=== PATIENT | male | born 1965 | race Caucasian/White ===

== ENCOUNTER 2022-05-18 07:43 | Emergency (ER) | payer OTHER, SELFPAY ==
[2022-05-18 08:00] VITALS: BP 149/92; PULSE 80; RESP 18; TEMP 36.5; O2SAT 98
--- NOTE | 2022-05-18 08:26 | ED.GENADULT ---
HPI - General Adult General Chief complaint: Extremity Injury, Lower Stated complaint: ANKLE PAIN History of Present Illness HPI narrative: The patient is a 56-year-old male who woke up 2 days ago and spontaneously developed pain and swelling with redness at the right ankle. 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 He has not had any falls or twists or turns or trauma to the right ankle. This was spontaneous. The pain swelling redness and discomfort has continued for the last 2 days and has increased. No spontaneous redness of any other joints in the past. No history of gout. No falls or trauma. No other joints that are painful. No fevers or chills or diaphoresis. No cough or respiratory symptoms such as dyspnea or chest pain or abdominal pain or discomfort Related Data Home Medications Medication Instructions Recorded Confirmed atenolol 50 mg tablet 50 mg DAILY 05/18/22 05/18/22 atorvastatin 20 mg tablet 20 mg DAILY 05/18/22 05/18/22 cyclobenzaprine 10 mg tablet 10 mg DAILY 05/18/22 05/18/22 lisinopril 20 mg tablet 20 mg DAILY 05/18/22 05/18/22 omeprazole 20 mg capsule,delayed 40 mg DAILY 05/18/22 05/18/22 release tramadol 50 mg tablet 50 mg TID 05/18/22 05/18/22 Allergies Allergy/AdvReac Type Severity Reaction Status Date / Time No Known Allergies Allergy Mild Verified 05/18/22 08:04 Review of Systems Review of Systems: All systems reviewed & are unremarkable except as noted in HPI and below Constitutional: Constitutional: Reports no additional constitutional complaints, Denies anorexia, Denies body ache(s), Denies chills, Denies excessive sweating, Denies fatigue, Denies fever(s), Denies frequent falls, Denies headache(s), Denies malaise and Denies poor appetite Eyes: Eyes: Reports no additional eye complaints, Denies blurry vision, Denies change in vision, Denies irritation, Denies itchy eyes and Denies photophobia ENT: Reports system reviewed and no additional complaints, except as documented, Reports Normal hearing present, Denies change in voice, Denies dysphagia, Denies vertigo, Denies dizziness, Denies ear discharge, Denies headache(s), Denies hearing loss, Denies hoarseness, Denies nasal congestion, Denies neck pain, Denies sinus pressure, Denies sore throat and Denies throat swelling Cardiovascular: Cardiovascular: Reports no additional cardiovascular complaints, Denies chest pain, Denies syncope, Denies rapid heart rate, Denies irregular heart rhythm, Denies leg edema, Denies dyspnea and Denies slow heart rate Respiratory: Respiratory: Reports no additional respiratory complaints, Denies cough, Denies dyspnea, Denies stridor and Denies wheezing Gastrointestinal: Gastrointestinal: Reports no additional gastrointestinal complaints, Denies abdominal pain, Denies melena, Denies hematochezia, Denies dysphagia, Denies diarrhea, Denies nausea and Denies vomiting Genitourinary: Genitourinary: Denies hematuria, Denies oliguria, Denies dysuria, Denies flank pain, Denies urinary frequency and Denies urinary urgency Musculoskeletal: Musculoskeletal: Reports no additional musculoskeletal complaints, Reports abnormal gait, Denies back pain, Denies myalgias, Reports arthralgias (right ankle), Reports joint swelling ( right ankle), Denies muscle cramps, Denies muscle weakness, Denies neck pain and Denies numbness Integumentary/Breasts: Skin/Breast: Reports system reviewed and no additional complaints, except as docu, Denies breast pain, Denies change in pigmentation, Denies pruritus, Denies erythema and Denies wounds Neurologic: Reports system reviewed and no additional complaints, except as documented, Reports Normal hearing present, Denies Abnormal speech present, Denies abnormal gait, Denies confusion, Denies vertigo, Denies dizziness, Denies syncope, Denies frequent falls, Denies headache(s), Denies focal weakness, Denies numbness and Denies paresthesias Psychiatric: Psychiatric: Reports no additional psychiatric compl
[2022-05-18] MEDS: IBUPROFEN 400 MG TABLET 800 MG PO (08:30)
[2022-05-18] MEDS: ACETAMINOPHEN 325 MG TABLET 975 MG PO (08:30)
[2022-05-18] MEDS: CEPHALEXIN 500 MG CAPSULE PO (08:31)
[2022-05-18 08:49] VITALS: BP 131/89; PULSE 75; RESP 16; TEMP 36.3; O2SAT 98
== END 2022-05-18 08:49 | disposition home or self-care (01) ==
PROVIDERS: Emergency Provider Emergency Medicine; PCP Physician Assistant
DX: L03.115 Cellulitis of right lower limb (principal)
CPT/HCPCS: 99283; A9270

== ENCOUNTER 2022-11-02 07:24 | Emergency (ER) | payer OTHER, SELFPAY ==
--- NOTE | ~2022-11-02 | XR_ITS ---
Right ankle Technique: AP, oblique, and lateral views were obtained. Clinical History: Pain and swelling Findings: No acute fracture or dislocation is seen. Osseous alignment is anatomic. Ankle mortise and other visualized joint spaces are preserved. Soft tissues are otherwise unremarkable. Impression: Unremarkable right ankle. Reviewed, dictated and finalized at [facility]. [employer] Impression: Unremarkable right ankle.
[2022-11-02 07:24] VITALS: BP 141/101; PULSE 118; RESP 18; TEMP 36; O2SAT 97
--- NOTE | 2022-11-02 07:32 | ED.LOWEXIN ---
HPI - Extremity Injury (Lower) General Chief Complaint: Extremity Problem,Nontraumatic Stated Complaint: foot pain Time Seen by Provider: 11/02/22 07:26 Source: patient and RN notes reviewed Mode of arrival: wheelchair Limitations: no limitations History of Present Illness HPI Narrative: Patient states that he has been having some pain in his left foot and ankle and noticed that it was slightly red. He had some leftover antibiotics that he started 3 days ago. With his left foot being tender he was walking down the stairs and then twisted his ankle on the right side while trying to limp on his left leg. He says his left ankle and foot have significantly improved. complaint: ankle injury Onset (ago): day(s) (2) Injury: Left: ankle Type of Injury: inversion Place: home Severity: moderate Relieving factors: nothing Exacerbating factors: weight bearing, movement and palpation Context: walking Associated symptoms: swelling and able to partially bear weight Other symptoms: none Related Data Home Medications Medication Instructions Recorded Confirmed atenolol 50 mg tablet 50 mg DAILY 05/18/22 11/02/22 atorvastatin 20 mg tablet 20 mg DAILY 05/18/22 11/02/22 cyclobenzaprine 10 mg tablet 10 mg DAILY 05/18/22 11/02/22 lisinopril 20 mg tablet 20 mg DAILY 05/18/22 11/02/22 omeprazole 20 mg capsule,delayed 40 mg DAILY 05/18/22 11/02/22 release tramadol 50 mg tablet 50 mg TID 05/18/22 11/02/22 Allergies Allergy/AdvReac Type Severity Reaction Status Date / Time No Known Allergies Allergy Mild Verified 05/18/22 08:04 Review of Systems Review of Systems: All systems reviewed & are unremarkable except as noted in HPI and below PMFSH Past Medical History Medical History (Updated 11/02/22 @ 08:04 by Preet Cottrell MD) GERD (gastroesophageal reflux disease) Hyperlipidemia Hypertension Social History Social History (Updated 11/02/22 @ 07:34 by Preet Cottrell MD) Smoking status: Never smoker Exam Const: General: healthy appearing, no acute distress and alert Nutritional Appearance: well nourished Orientation/consciousness: patient oriented x3 Limitations: no limitations HENMT: Head: normal to inspection Ears: external ears normal Face/Nose/Sinus: Normal external nose present Face and sinus: normal facial exam Mouth: Yes moist mucous membranes Eyes: Conjunctivae: conjunctivae normal Pupils: Equal, round and reactive pupils present EOM: EOMs intact bilaterally Neck: Neck: normal visual inspection Resp: Effort & Inspection: normal respiratory effort Auscultation: clear to auscultation bilaterally Cardio: Rate: regular rate Rhythm: regular rhythm GI: GI Palp: Yes Soft to palpation and No Tenderness to palpation present (GI) Auscultation: normal bowel sounds Back/Spine/Pelvis: Cervical Spine: cervical ROM normal Thoracic/Lumbar Spine: thoraco-lumbar ROM normal Skin: General skin exam: normal color Rashes: no rashes Neuro: General: patient oriented x3, moves all extremities, no focal motor deficits and CN's II-XI intact bilaterally Speech: normal speech Extrem: General: normal exam except as noted and no clubbing, cyanosis or edema Right lower extremity: ankle Details: tenderness Location: of the medial malleolus, swelling Details: diffusely, abnormal ROM Details: pain with active ROM Details: with plantar flexion, with dorsiflexion, with inversion and with eversion and pain with passive ROM Details: with inversion and with eversion and warmth Location: medially and foot Details: normal to inspection; no tenderness Psych: Mental Status: mental status grossly normal Affect: normal affect Attitude: cooperative Course Vital Signs Vital signs: Vital Signs Temperature 36.0 C L 11/02/22 07:24 Pulse Rate 118 H 11/02/22 07:24 Respiratory Rate 18 11/02/22 07:24 Blood Pressure 141/101 H 11/02/22 07:24 Pulse Oximetry 97 11/02/22 07:24 Oxygen Delivery Room Air 11/02/22 07:24 Temp
[2022-11-02 08:15] VITALS: BP 141/78; PULSE 108; RESP 18; TEMP 36.3; O2SAT 98
== END 2022-11-02 08:27 | disposition home or self-care (01) ==
LOC: CHSED 08:06
PROVIDERS: Emergency Provider Emergency Medicine; PCP Physician Assistant
DX: S93.431A Sprain of tibiofibular ligament of right ankle, initial encounter (principal); I10 Essential (primary) hypertension; E78.5 Hyperlipidemia, unspecified; X50.0XXA Overexertion from strenuous movement or load, initial encounter
CPT/HCPCS: 29515; 73610; 99283; L4350

== ENCOUNTER 2024-05-26 10:17 | Emergency (ER) | payer OTHER, SELFPAY ==
--- NOTE | ~2024-05-26 | CT_ITS ---
EXAMINATION: CT abdomen pelvis w con DATE: 05/26/2024 11:38 INDICATION: Abdominal pain TECHNIQUE: Computed tomography (CT) of the abdomen and pelvis was performed with 100 mL Omnipaque-350 intravenous contrast. Automated exposure control and iterative reconstruction technique were employe d. The dose-length product was 1406.58 mGy-cm. COMPARISON: None FINDINGS: Respiratory motion and mild atelectasis at the bilateral lung bases. Heart size is normal. No pericar dial or pleural effusion. Small sliding-type hiatal hernia. Liver, gallbladder, spleen, pancreas and bilateral adrenal glands are normal. Bilateral renal cysts measuring up to 2.4 cm in the left kidney and 1.6 cm the right kidney. There are some scattered fluid within nondilated loops of distal small b owel. Colon is relatively decompressed. No bowel obstruction. Normal appendix. Small fat-containing u mbilical hernia. There is a larger 10.0 x 8.5 x 4.2 cm supraumbilical ventral hernia containing oment al fat which extends to a 3.0 x 2.2 cm os. There is mild stranding of the omental fat at the orifice to the hernia. Bladder is normal. No free intraperitoneal gas or fluid. No pathologically enlarged ab dominal or pelvic lymphadenopathy. Likely physiologic mild anterior wedging at T11 and T12. Mild lumb ar and lower thoracic spondylosis. IMPRESSION: 1. Fat-containing umbilical and supraumbilical ventral hernias. 2. Small nonspecific fluid within nondilated small bowel which can be seen with ileus or enteritis. N o bowel obstruction or other acute intra-abdominal/pelvic process. 2. Small sliding-type hiatal hernia. Reviewed, dictated and finalized at location A. IMPRESSION: 1. Fat-containing umbilical and supraumbilical ventral hernias. 2. Small nonspecific fluid within nondilated small bowel which can be seen with ileus or enteritis. No bowel obstruction or other acute intra-abdominal/pelvic process. 2. Small sliding-type hiatal hernia.
[2024-05-26 10:17] VITALS: BP 123/73; PULSE 72; RESP 18; TEMP 36.6; O2SAT 98
--- NOTE | 2024-05-26 10:29 | ED.ABDPAIN ---
HPI - Abdominal Pain General Chief Complaint: Abdominal Pain Stated Complaint: abd pain Time Seen by Provider: 05/26/24 10:27 History of Present Illness HPI narrative: Pt presents with left sided abdominal pain for about 3 hrs. Pt says he had a diarrheal stool and then developed pain on the left side of his abdomen left of his ventral wall hernia. Pt had some nausea and emesis once but the nausea has resolved. Pt did not notice any blood in his stool. Pt denies any fever. Related Data Home Medications Medication Instructions Recorded Confirmed atenolol 50 mg tablet 50 mg DAILY 05/18/22 05/26/24 atorvastatin 20 mg tablet 20 mg DAILY 05/18/22 05/26/24 lisinopril 20 mg tablet 20 mg DAILY 05/18/22 05/26/24 omeprazole 20 mg capsule,delayed 40 mg DAILY 05/18/22 05/26/24 release tramadol 50 mg tablet 50 mg TID 05/18/22 05/26/24 diclofenac sodium 75 mg 75 mg PO DAILY 05/26/24 05/26/24 tablet,delayed release gabapentin 300 mg capsule 300 mg PO DAILY 05/26/24 05/26/24 Allergies Allergy/AdvReac Type Severity Reaction Status Date / Time No Known Allergies Allergy Mild Verified 05/26/24 10:32 Review of Systems Review of Systems: All systems reviewed & are unremarkable except as noted in HPI and below PMFSH Past Medical History Medical History (Updated 05/26/24 @ 12:19 by Arielle Jose III DO) GERD (gastroesophageal reflux disease) Hyperlipidemia Hypertension Social History Social History (Updated 11/02/22 @ 07:34 by Preet CottrellMD) Smoking status: Never smoker Exam Const: General: healthy appearing and no acute distress Nutritional Appearance: well nourished Orientation/consciousness: patient oriented x3 Limitations: no limitations Chest: Chest palpation & inspection: normal inspection of the chest Resp: Effort & Inspection: normal respiratory effort Auscultation: clear to auscultation bilaterally Cardio: Rate: regular rate Rhythm: regular rhythm GI: GI Palp: Yes Soft to palpation and Yes Tenderness to palpation present (GI) (left of large ventral hernia, hernia mild tenderness to palpation) Auscultation: normal bowel sounds Skin: General skin exam: normal color Rashes: no rashes Neuro: General: patient oriented x3, moves all extremities, no meningeal signs and no focal motor deficits Speech: normal speech Extrem: General: normal to inspection and no clubbing, cyanosis or edema Psych: Mental Status: mental status grossly normal Affect: Anxious affect present Attitude: cooperative Course Vital Signs Vital signs: Vital Signs Temperature 97.8 F 05/26/24 10:17 Pulse Rate 72 05/26/24 10:17 Respiratory Rate 18 05/26/24 10:17 Blood Pressure 123/73 05/26/24 10:17 Pulse Oximetry 98 05/26/24 10:17 Oxygen Delivery Room Air 05/26/24 10:17 Temperature 97.8 F 05/26/24 10:17 Pulse Rate 72 05/26/24 10:17 Respiratory Rate 18 05/26/24 10:17 Blood Pressure 127/70 05/26/24 11:37 Pulse Oximetry 92 05/26/24 11:37 Oxygen Delivery Room Air 05/26/24 10:17 MDM - Abdominal Pain MDM Narrative Medical decision making narrative: Pt presents with abdominal pain for about 3 hrs left of his ventral wall hernia. Pt had diarrhea first and then pain. Will need labs and CT abd/pelvis will give Morphine for pain and zofran as well as fluids. Pt feels much better after fluids and meds. WBC slightly elevated but remainder of labs unremarkable. CT shows some enteritis but otherwise normal. Will send home on zofran and norco. Differential Diagnosis Differential diagnosis: Likely abdominal pain, constipation, diverticulitis, gastroenteritis, pancreatitis, small bowel obstruction and other (incarcerated hernia causing bowel ischemia or obstruction also a consideration) Lab Data 05/26/24 10:41 05/26/24 10:41 Labs: Lab Results 05/26/24 Range/Units 10:41 WBC 13.6 H (4.8-10.8) K/mm3 RBC 5.31 (4.70-6.10) M/mm3 Hgb 14.
[2024-05-26 10:47] LABS: Basophils Absolute Auto 0.06 K/mm3 (0.00-0.10); Basophils Percent Auto 0.4 % (0.0-1.0); Eosinophils Absolute Auto 0.03 K/mm3 (0.02-0.50); Eosinophils Percent Auto 0.2 % (1.0-6.0); Hematocrit 44.7 % (40.0-54.0); Hemoglobin 14.5 g/dL (14.0-18.0); Immature Granulocyte Absolute 0.06 K/mm3 (0.00-0.00); Immature Granulocyte Percent A 0.4 % (0.0-0.0); Lymphocytes Absolute Auto 1.28 K/mm3 (1.10-4.50); Lymphocytes Percent Auto 9.4 % (18.0-42.0); Mean Corpuscular HGB Conc 32.4 g/dL (32-36); Mean Corpuscular Hemoglobin 27.3 pg (27.0-31.0); Mean Corpuscular Volume 84.2 fL (78.0-102.0); Mean Platelet Volume 9.6 fl (8.7-11.0); Monocytes Absolute Auto 0.65 K/mm3 (0.10-0.90); Monocytes Percent Auto 4.8 % (2.0-11.0); Neutrophils Absolute Auto 11.53 K/mm3 (1.70-7.20); Neutrophils Percent Auto 84.8 % (50.0-70.0); Platelet Count Result 362 K/mm3 (150-420); Red Blood Count 5.31 M/mm3 (4.70-6.10); Red Cell Distribution Width 12.9 % (11.6-14.4); White Blood Count 13.6 K/mm3 (4.8-10.8)
[2024-05-26] MEDS: MORPHINE SULFATE (*CRX) 4 MG/ML INJ IV PUSH (10:50)
[2024-05-26] MEDS: LACTATED RINGERS 1,000 ML 999 ML IV CONT (10:52)
[2024-05-26] MEDS: ONDANSETRON INJ 4 MG/2 ML VIAL IV PUSH (10:53)
[2024-05-26 11:03] LABS: Prothrombin Time 10.6 Seconds (9.50-12.1)
[2024-05-26 11:04] LABS: Alanine Aminotransferase 63 U/L (16-63); Albumin Level 3.7 g/dL (3.4-5.0); Alkaline Phosphatase 105 U/L (46-116); Anion Gap 11 mmol/L (4-12); Aspartate Amino Transferase 34 U/L (15-37); Bilirubin,Total 0.5 mg/dL (0.00-1.00); Blood Urea Nitrogen 15 mg/dL (7-18); Carbon Dioxide 25 mmol/L (21-32); Chloride 102 mmol/L (98-108); Estimated CRCL calculation 72 ml/min; Estimated Glomerular Filt Rate 57; Glucose 167 mg/dL (70-99); Lipase 30 U/L (16-77); Osmolality Calculated 290 mOsm/kg (285-295); Potassium 3.6 mmol/L (3.5-5.1); Sodium 138 mmol/L (136-145); Total Protein 7.9 g/dL (6.4-8.2)
--- NOTE | 2024-05-26 11:20 | PC.NURSE ---
Pt used restroom.
[2024-05-26 11:37] VITALS: BP 127/70; O2SAT 92
--- NOTE | 2024-05-26 11:45 | PC.NURSE ---
Pt returned from CT, resting comfortably with mother at bedside.
[2024-05-26 12:01] VITALS: BP 128/63; O2SAT 95
[2024-05-26 12:21] VITALS: BP 122/64; O2SAT 95
[2024-05-26 12:41] LABS: Reflex Lactic Acid Yes or No Add Lactic
== END 2024-05-26 12:25 | disposition home or self-care (01) ==
PROVIDERS: Emergency Provider Emergency Medicine; PCP Physician Assistant
DX: K52.9 Noninfective gastroenteritis and colitis, unspecified (principal); I10 Essential (primary) hypertension; Z79.891 Long term (current) use of opiate analgesic; Z79.899 Other long term (current) drug therapy
CPT/HCPCS: 36415; 74177; 80053; 83605; 83690; 85025; 85610; 85730; 96361; 96374; 96375; 99284; J2270; J2405; J7120; Q9967

== ENCOUNTER 2025-04-29 17:19 | Emergency (ER) | payer OTHER, SELFPAY ==
[2025-04-29] VITALS (13 sets, daily range): BP systolic 95–156; BP diastolic 60–87; PULSE 68–89; RESP 13–18; TEMP 35.6–36.7; O2SAT 94–98
--- NOTE | ~2025-04-29 | CT_ITS ---
EXAMINATION: CT abdomen pelvis w con DATE: 04/29/2025 19:35 INDICATION: Abdominal pain TECHNIQUE: Computed tomography (CT) of the abdomen and pelvis was performed with 100 mL Omnipaque-350 intravenous contrast. Automated exposure control and iterative reconstruction technique were employe d. The dose-length product was 1419.46 mGy-cm. COMPARISON: 05/26/2024. FINDINGS: Lower thorax: Mild motion and dependent atelectasis in the lung bases. Liver: Enlarged. Diffusely low-density parenchyma. Ovoid soft tissue density in the anterior mediasti num, incompletely included in the [id number]. Biliary/Gallbladder: Gallbladder is normal. No bile duct dilation. Pancreas: No mass or duct dilation. Spleen: Normal. Adrenals:No mass. Kidneys: No suspicious mass, obstructing stone, or hydronephrosis. Simple bilateral renal cysts. GI tract: Small hiatal hernia. Normal upper small bowel diameter. Focal proximal transition point at the mid abdomen (axial image 122/213), followed by several loops of dilated fluid and food containing mid small bowel, and focal narrowing of the small bowel as it enters a large supraumbilical hernia. Single loop of nondilated small bowel within the hernia sac, with wall edema noted in this region and the remaining loops of distal small bowel. Mesenteric stranding and mild interloop fluid at the dila ambika loops and portion of the exiting loop. No large bowel dilation. Normal appendix. Mesentery/Peritoneum: No ascites, mass, or free air. Retroperitoneum: No mass. Pelvis: Pelvic organs are within normal limits. Soft Tissues: Moderate fat-containing supraumbilical midline hernia. Large additional 8.6 x 11.3 cm s upra umbilical hernia more inferiorly, containing fat and a loop of small bowel, 3.9 cm neck. Moderat e sized uncomplicated fat-containing umbilical hernia. Bones: No acute osseous finding. IMPRESSION: Incompletely visualized anterior mediastinal soft tissue mass. Comparison to outside studies would be helpful. Consider timely outpatient CT of the chest with contrast if there are no acute chest sympto ms. Hepatomegaly and steatosis. Mid small bowel obstruction secondary to herniation of a loop of small bowel into a large supraumbili niya hernia, with wall edema, mesenteric edema and interloop fluid that may suggest vascular compromis e. Reviewed, dictated and finalized at location K. IMPRESSION: Incompletely visualized anterior mediastinal soft tissue mass. Comparison to [facility] studies would be helpful. Consider timely outpatient CT of the chest with contrast if there are no acute chest symptoms. Hepatomegaly and steatosis. Mid small bowel obstruction secondary to herniation of a loop of small bowel in to a large supraumbilical hernia, with wall edema, mesenteric edema and interlo op fluid that may suggest vascular compromise.
--- NOTE | 2025-04-29 17:49 | ED_ITS ---
HPI - Abdominal Pain General Chief Complaint: Abdominal Pain <Osito Sauceda MD - Last Filed: 04/29/25 18:43> Stated Complaint: abdominal pain <Osito Sauceda MD - Last Filed: 04/29/25 18:43> Time Seen by Provider: 04/29/25 17:19 <Osito Sauceda MD - Last Filed: 04/29/25 18:43> Source: patient <Oisto Sauceda MD - Last Filed: 04/29/25 18:43> Mode of arrival: ambulatory <Osito Sauceda MD - Last Filed: 04/29/25 18:43> Limitations: no limitations <Osito Sauceda MD - Last Filed: 04/29/25 18:43> History of Present Illness HPI narrative: 59 years old white male came to the ED from home by private car with is mom complaining of left lower quadrant pain started 2 days ago, sharp, intermittent, no radiation, no aggravating or relieving factors. Patient denies any fever, chills, nausea, vomiting, or urinary symptoms. Patient is telling me had similar symptoms 6 months ago and was diagnosed of gut infection and was discharged on antibiotic at that time. History of ventral abdominal hernia <Osito Sauceda MD - Last Filed: 04/29/25 18:43> Mayur is a 59 years old white male with a PMH of likely developmental delay, GERD, HTN, HLD and a large supraumbilical hernia that came to the ED from home by private car with is mom complaining of left lower quadrant pain started 2 days ago, sharp, intermittent, no radiation, no aggravating or relieving factors. Patient denies any fever, chills, nausea, vomiting, or urinary symptoms. Last BM was this morning. Patient is telling me had similar symptoms 6 months ago and was diagnosed of gut infection and was discharged on antibiotic at that time. History of ventral abdominal hernia <Mitchell Bobo DO - Last Filed: 04/29/25 23:57> Related Data Home Medications: Home Medications ?Medication ?Instructions ?Recorded ?Confirmed ?Last Taken ?Type atenolol 50 mg tablet 50 mg DAILY 05/18/22 05/26/24 Unknown History atorvastatin 20 mg tablet 20 mg DAILY 05/18/22 05/26/24 Unknown History lisinopril 20 mg tablet 20 mg DAILY 05/18/22 05/26/24 Unknown History omeprazole 20 mg capsule,delayed 40 mg DAILY 05/18/22 05/26/24 Unknown History release tramadol 50 mg tablet 50 mg TID 05/18/22 05/26/24 Unknown History diclofenac sodium 75 mg 75 mg PO DAILY 05/26/24 05/26/24 Unknown History tablet,delayed release gabapentin 300 mg capsule 300 mg PO DAILY 05/26/24 05/26/24 Unknown History <Osito Sauceda MD - Last Filed: 04/29/25 18:43> Allergies/Adverse Reactions: Allergies Allergy/AdvReac Type Severity Reaction Status Date / Time No Known Allergies Allergy Mild Verified 04/29/25 17:27 <Osito Sauceda MD - Last Filed: 04/29/25 18:43> Review of Systems 2 Review of Systems: All systems reviewed & are unremarkable except as noted in HPI and below <Osito Sauceda MD - Last Filed: 04/29/25 18:43> [facility] Past Medical History Medical History: Medical History GERD (gastroesophageal reflux disease) Hypertension Hyperlipidemia <Osito Sauceda MD - Last Filed: 04/29/25 18:43> Social History Social History: Social History Smoking status: Never smoker <Osito Sauceda MD - Last Filed: 04/29/25 18:43> Exam 2 Narrative: General appearance: Well-developed, well-nourished Skin: Normal color Head: Normocephalic, nontraumatic Eyes: Clear conjunctiva ENT: Oropharynx normal, ears normal, nose normal Neck: Supple, nontender Chest and respiratory: Airway patent, no respiratory distress, no accessory muscle use Heart: Regular rate/rhythm Abdomen: Soft, slight tenderness left lower quadrant, no guarding or rebound,, no organomegaly, quiet bowel sounds, epigastric hernia 10 x 10 cm, firm in consistency, tender with deep palpation. Patient is telling me that hernia been out this for years Vascular: Normal peripheral pulses, normal capillary refill. Musculoskeletal: Normal range of motion, nontender back Neurologic: Alert and oriented ?3, NEUROPSYCHOLOGY MEDICAL CONSULTANT is normal as tested, no gross motor deficit <Osito Sauceda MD - Last Filed: 04/29/25 18:43> Course Course Emergency Course: Care assumed from Dr. Sauceda at 1900. Mayur could not complete the CT d/t claustrophobia. He was given Ativan, diphenhydramine for anxiety and more dilaudid for pain as well as placed on a monitor. EXAMINATION: CT abdomen pelvis w con DATE: 04/29/2025 19:35 INDICATION: Abdominal pain TECHNIQUE: Computed tomography (CT) of the abdomen and pelvis was performed with 100 mL Omnipaque-350 intravenous contrast. Automated exposure control and iterative reconstruction technique were employed. The dose-length product was 1419.46 mGy-cm. COMPARISON: 05/26/2024. FINDINGS: Lower thorax: Mild motion and dependent atelectasis in the lung bases. Liver: Enlarged. Diffusely low-density parenchyma. Ovoid soft tissue density in the anterior mediastinum, incompletely included in the [id number]. Biliary/Gallbladder: Gallbladder is normal. No bile duct dilation. Pancreas: No mass or duct dilation. Spleen: Normal. Adrenals:No mass. Kidneys: No suspicious mass, obstructing stone, or hydronephrosis. Simple bilateral renal cysts. GI tract: Small hiatal hernia. Normal upper small bowel diameter. Focal proximal transition point at the mid abdomen (axial image 122/213), followed by several loops of dilated fluid and food containing mid small bowel, and focal narrowing of the small bowel as it enters a large supraumbilical hernia. Single loop of nondilated small bowel within the hernia sac, with wall edema noted in this region and the remaining loops of distal small bowel. Mesenteric stranding and mild interloop fluid at the dilated loops and portion of the exiting loop. No large bowel dilation. Normal appendix. Mesentery/Peritoneum: No ascites, mass, or free air. Retroperitoneum: No mass. Pelvis: Pelvic organs are within normal limits. Soft Tissues: Moderate fat-containing supraumbilical midline hernia. Large additional 8.6 x 11.3 cm supra umbilical hernia more inferiorly, containing fat and a loop of small bowel, 3.9 cm neck. Moderate sized uncomplicated fat- containing umbilical hernia. Bones: No acute osseous finding. IMPRESSION: Incompletely visualized anterior mediastinal soft tissue mass. Comparison to outside studies would be helpful. Consider timely outpatient CT of the chest with contrast if there are no acute chest symptoms. Hepatomegaly and steatosis. Mid small bowel obstruction secondary to herniation of a loop of small bowel into a large supraumbilical hernia, with wall edema, mesenteric edema and interloop fluid that may suggest vascular compromise. We discussed the results with the patient countless times over a half an hour. He states that he previously woke up during surgery and felt everything and does not want to go. He is oriented to time and place but cannot grasp the situation. We discussed that this could led to lethal consequences and he states that he will go in a couple weeks. No matter how many times we speak with the patient he cannot understand that this is a potentially lethal situation. His mother urges him to go. We called Ruth, the pay station department manager as he is not consenting to transfer but lacks capacity to leave AMA. I spoke iwth Dr. Leyva of surgery that recommended admission to medicine, with surgical consult. I spoke with Dr. Lawson of the hospitalist team that accepted the transfer. He was transferred at [id number] to [facility] for surgery consultation and a higher level of care. <Mitchell Bobo DO - Last Filed: 04/29/25 23:57> Vital Signs Vital signs: Vital Signs Temperature 96.0 F L 04/29/25 17:19 Pulse Rate 68 04/29/25 17:19 Respiratory Rate 18 04/29/25 17:19 Blood Pressure 156/87 H 04/29/25 17:19 Pulse Oximetry 95 04/29/25 17:19 Oxygen Delivery Room Air 04/29/25 17:19 Temperature 98.1 F 04/29/25 22:01 Pulse Rate 87 04/29/25 23:55 Respiratory Rate 18 04/29/25 23:55 Blood Pressure 107/72 04/29/25 23:55 Pulse Oximetry 97 04/29/25 23:55 Oxygen Delivery Room Air 04/29/25 23:55 <Osito Sauceda MD - Last Filed: 04/29/25 18:43> Vital Signs Temperature 96.0 F L 04/29/25 17:19 Pulse Rate 68 04/29/25 17:19 Respiratory Rate 18 04/29/25 17:19 Blood Pressure 156/87 H 04/29/25 17:19 Pulse Oximetry 95 04/29/25 17:19 Oxygen Delivery Room Air 04/29/25 17:19 Temperature 98.1 F 04/29/25 22:01 Pulse Rate 87 04/29/25 23:55 Respiratory Rate 18 04/29/25 23:55 Blood Pressure 107/72 04/29/25 23:55 Pulse Oximetry 97 04/29/25 23:55 Oxygen Delivery Room Air 04/29/25 23:55 <Mitchell Bobo DO - Last Filed: 04/29/25 23:57> MDM - Abdominal Pain Lab Data Result diagrams: 04/29/25 17:57 04/29/25 17:57 <Osito Sauceda MD - Last Filed: 04/29/25 18:43> Labs: Lab Results 04/29/25 04/29/25 Range/Units 17:57 18:28 WBC 14.7 H (4.8-10.8) K/mm3 RBC 5.68 (4.70-6.10) M/mm3 Hgb 15.5 (14.0-18.0) g/dL Hct 48.0 (40.0-54.0) % MCV 84.5 (78.0-102.0) fL MCH 27.3 (27.0-31.0) pg MCHC 32.3 (32-36) g/dL RDW 12.8 (11.6-14.4) % Plt Count 336 (150-420) K/mm3 MPV 9.4 (8.7-11.0) fl Immature Gran % (Auto) 0.4 H (0.0-0.0) % Neut % (Auto) 81.9 H (50.0-70.0) % Lymph % (Auto) 11.9 L (18.0-42.0) % Bucks % (Auto) 5.0 (2.0-11.0) % Eos % (Auto) 0.3 L (1.0-6.0) % Baso % (Auto) 0.5 (0.0-1.0) % Lymph # (Auto) 1.76 (1.10-4.50) K/mm3 Bucks # (Auto) 0.73 (0.10-0.90) K/mm3 Eos # (Auto) 0.05 (0.02-0.50) K/mm3 Baso # (Auto) 0.08 (0.00-0.10) K/mm3 Abs Immat Gran (auto) 0.06 H (0.00-0.00) K/mm3 Absolute Neuts (auto) 12.06 H (1.70-7.20) K/mm3 Absolute Nucleated RBC 0.00 (0.00-0.00) K/mm3 Nucleated RBC % 0.0 (0-0.0) % Sodium 137 (137-145) mmol/L Potassium 4.3 (3.4-5.0) mmol/L Chloride 103 (98-107) mmol/L Carbon Dioxide 24 (22-30) mmol/L Anion Gap 10 (4-12) mmol/L BUN 12 (9-20) mg/dL Creatinine 0.97 (0.7-1.3) mg/dL Estim Creat Clear Calc 97 ml/min Estimated GFR > 60 (59 - ) Glucose 147 H (65-110) mg/dL Calculated Osmolality 286 (285-295) mOsm/kg Calcium 9.0 (8.4-10.2) mg/dL Total Bilirubin 0.7 (0.2-1.3) mg/dL AST 88 H (17-59) U/L ALT 94 H (6-50) U/L Alkaline Phosphatase 99 (38-126) U/L Total Protein 8.1 (6.3-8.2) g/dL Albumin 4.3 (3.5-5.1) g/dL Lipase 66 (23-300) U/L Urine Color Light yellow (Yellow) Urine Appearance Clear (Clear) Urine pH 6.0 (5.0-8.0) Ur Specific Hamill 1.015 (1.010-1.020) Urine Protein Negative (Negative) Urine Glucose (UA) Negative (Negative) Urine Ketones Trace H (Negative) Ur Blood (Man) Negative (Negative) Urine Nitrate Negative (Negative) Urine Bilirubin Negative (Negative) Urine Urobilinogen 0.2 (0.2-1.0) mg/dL Leukocyte Esterase Rfl Negative (Negative) JENNY/UL <Osito Sauceda MD - Last Filed: 04/29/25 18:43> Lab Results 04/29/25 04/29/25 Range/Units 17:57 18:28 WBC 14.7 H (4.8-10.8) K/mm3 RBC 5.68 (4.70-6.10) M/mm3 Hgb 15.5 (14.0-18.0) g/dL Hct 48.0 (40.0-54.0) % MCV 84.5 (78.0-102.0) fL MCH 27.3 (27.0-31.0) pg MCHC 32.3 (32-36) g/dL RDW 12.8 (11.6-14.4) % Plt Count 336 (150-420) K/mm3 MPV 9.4 (8.7-11.0) fl Immature Gran % (Auto) 0.4 H (0.0-0.0) % Neut % (Auto) 81.9 H (50.0-70.0) % Lymph % (Auto) 11.9 L (18.0-42.0) % Bucks % (Auto) 5.0 (2.0-11.0) % Eos % (Auto) 0.3 L (1.0-6.0) % Baso % (Auto) 0.5 (0.0-1.0) % Lymph # (Auto) 1.76 (1.10-4.50) K/mm3 Bucks # (Auto) 0.73 (0.10-0.90) K/mm3 Eos # (Auto) 0.05 (0.02-0.50) K/mm3 Baso # (Auto) 0.08 (0.00-0.10) K/mm3 Abs Immat Gran (auto) 0.06 H (0.00-0.00) K/mm3 Absolute Neuts (auto) 12.06 H (1.70-7.20) K/mm3 Absolute Nucleated RBC 0.00 (0.00-0.00) K/mm3 Nucleated RBC % 0.0 (0-0.0) % Sodium 137 (137-145) mmol/L Potassium 4.3 (3.4-5.0) mmol/L Chloride 103 (98-107) mmol/L Carbon Dioxide 24 (22-30) mmol/L Anion Gap 10 (4-12) mmol/L BUN 12 (9-20) mg/dL Creatinine 0.97 (0.7-1.3) mg/dL Estim Creat Clear Calc 97 ml/min Estimated GFR > 60 (59 - ) Glucose 147 H (65-110) mg/dL Calculated Osmolality 286 (285-295) mOsm/kg Calcium 9.0 (8.4-10.2) mg/dL Total Bilirubin 0.7 (0.2-1.3) mg/dL AST 88 H (17-59) U/L ALT 94 H (6-50) U/L Alkaline Phosphatase 99 (38-126) U/L Total Protein 8.1 (6.3-8.2) g/dL Albumin 4.3 (3.5-5.1) g/dL Lipase 66 (23-300) U/L Urine Color Light yellow (Yellow) Urine Appearance Clear (Clear) Urine pH 6.0 (5.0-8.0) Ur Specific Hamill 1.015 (1.010-1.020) Urine Protein Negative (Negative) Urine Glucose (UA) Negative (Negative) Urine Ketones Trace H (Negative) Ur Blood (Man) Negative (Negative) Urine Nitrate Negative (Negative) Urine Bilirubin Negative (Negative) Urine Urobilinogen 0.2 (0.2-1.0) mg/dL Leukocyte Esterase Rfl Negative (Negative) JENNY/UL <Mitchell Bobo DO - Last Filed: 04/29/25 23:57> Imaging Data Radiologist's impression: ITS Impressions Abdomen/Pelvis CT 04/29/25 19:36 IMPRESSION: Incompletely visualized anterior mediastinal soft tissue mass. Comparison to outside studies would be helpful. Consider timely outpatient CT of the chest with contrast if there are no acute chest symptoms. Hepatomegaly and steatosis. Mid small bowel obstruction secondary to herniation of a loop of small bowel into a large supraumbilical hernia, with wall edema, mesenteric edema and interloop fluid that may suggest vascular compromise. <Osito Sauceda MD - Last Filed: 04/29/25 18:43> ITS Impressions Abdomen/Pelvis CT 04/29/25 19:36 IMPRESSION: Incompletely visualized anterior mediastinal soft tissue mass. Comparison to outside studies would be helpful. Consider timely outpatient CT of the chest with contrast if there are no acute chest symptoms. Hepatomegaly and steatosis. Mid small bowel obstruction secondary to herniation of a loop of small bowel into a large supraumbilical hernia, with wall edema, mesenteric edema and interloop fluid that may suggest vascular compromise. <Mitchell Bobo DO - Last Filed: 04/29/25 23:57> Critical Care Time Critical Care Time Critical Care Time: No <Osito Sauceda MD - Last Filed: 04/29/25 18:43> Discharge Plan Discharge Clinical Impression: SBO (small bowel obstruction) <Osito Sauceda MD - Last Filed: 04/29/25 18:43> Patient Disposition: Acute Care Hospital <Osito Sauceda MD - Last Filed: 04/29/25 18:43> Condition: Stable <Osito Sauceda MD - Last Filed: 04/29/25 18:43> Patient Language: Namibian <Osito Sauceda MD - Last Filed: 04/29/25 18:43> Prescriptions: No Action gabapentin 300 mg capsule 300 mg PO DAILY diclofenac sodium 75 mg tablet,delayed release (DR/EC) 75 mg PO DAILY ondansetron 4 mg tablet,disintegrating 4 mg PO Q8H PRN (Reason: nausea and vomiting) Qty: 14 0RF hydrocodone-acetaminophen 5-325 mg tablet 1 tablet PO Q6H PRN (Reason: pain) Qty: 10 0RF atorvastatin 20 mg tablet 20 mg DAILY lisinopril 20 mg tablet 20 mg DAILY tramadol 50 mg tablet 50 mg TID omeprazole 20 mg capsule,delayed release(DR/EC) 40 mg DAILY atenolol 50 mg tablet 50 mg DAILY <Osito Sauceda MD - Last Filed: 04/29/25 18:43> Follow-up/Referrals: Sharri,SLVAA Singletary [Primary Care Provider] - <Osito Sauceda MD - Last Filed: 04/29/25 18:43>
[2025-04-29 18:00] LABS: Hematocrit 48.0 % (40.0-54.0); Hemoglobin 15.5 g/dL (14.0-18.0); Immature Granulocyte Percent A 0.4 % (0.0-0.0); Lymphocytes Absolute Auto 1.76 K/mm3 (1.10-4.50); Mean Corpuscular HGB Conc 32.3 g/dL (32-36); Mean Corpuscular Hemoglobin 27.3 pg (27.0-31.0); Mean Corpuscular Volume 84.5 fL (78.0-102.0); Nucleated Red Blood Cells Absolute Auto 0.00 K/mm3 (0.00-0.00); Nucleated Red Blood Cells Perc 0.0 % (0-0.0); Platelet Count Result 336 K/mm3 (150-420); Red Blood Count 5.68 M/mm3 (4.70-6.10); White Blood Count 14.7 K/mm3 (4.8-10.8)
[2025-04-29] MEDS: SODIUM CHLORIDE 0.9% IV 1,000 ML 999 ML IV CONT ×2 (18:14→21:40)
[2025-04-29] MEDS: ONDANSETRON INJ 4 MG/2 ML VIAL IV PUSH ×2 (18:15→22:45)
[2025-04-29] MEDS: HYDROmorphone HCL INJ (*CRX) 2 MG/ML VIAL 0.5 MG IV PUSH ×2 (18:15→19:11)
[2025-04-29 18:30] LABS: Add Urine Microscopic? NO; Appearance Urine Clear (Clear); Glucose Urine UA Negative (Negative); Leukocyte Esterase Ur Negative LEU/UL (Negative); Nitrate Urine Negative (Negative); Specific Grav Ur 1.015 (1.010-1.020)
[2025-04-29 18:34] LABS: Alanine Aminotransferase 94 U/L (6-50); Albumin Level 4.3 g/dL (3.5-5.1); Alkaline Phosphatase 99 U/L (38-126); Anion Gap 10 mmol/L (4-12); Aspartate Amino Transferase 88 U/L (17-59); Bilirubin,Total 0.7 mg/dL (0.2-1.3); Blood Urea Nitrogen 12 mg/dL (9-20); Calcium 9.0 mg/dL (8.4-10.2); Carbon Dioxide 24 mmol/L (22-30); Chloride 103 mmol/L (98-107); Estimated CRCL calculation 97 ml/min; Estimated Glomerular Filt Rate > 60; Glucose 147 mg/dL (65-110); Lipase 66 U/L (23-300); Osmolality Calculated 286 mOsm/kg (285-295); Potassium 4.3 mmol/L (3.4-5.0); Sodium 137 mmol/L (137-145); Total Protein 8.1 g/dL (6.3-8.2)
--- NOTE | 2025-04-29 19:00 | PC.NURSE ---
Pt went to CT, had anxiety and was unable to complete exam. RT returned pt to dept. ERP placed new RX order. Will administer and retry CT after it has taken effect.
[2025-04-29] MEDS: LORazepam INJ (*CRX) 2 MG/ML VIAL 1 MG IV PUSH (19:03)
--- NOTE | 2025-04-29 20:25 | PC.NURSE ---
Spoke w/ pt about need for transfer and dx from CT report, encouraged need for transfer to surgeon. Pt is debating about not wanting to go anywhere. He states he is unsure if he wants to go anywhere. Explained in depth to pt by ER MD Dr Bobo about risks/benefits of needing it done and what will happen if not taken care of. Pt discussing w/ his mom about going or not going.
--- NOTE | 2025-04-29 20:48 | PC.NURSE ---
ERP DR Bobo in room w/ pt and his mother again, explaining the need for transfer to a surgeon and that risks of not going to see a surgeon and get surgery will possible lead to . Explained to pt numerous times about risks of incarcerated dying bowel and an obstruction. Pt still not able to really comprehend necessity of the need for transfer and debating on going home. Explained to pt this is not an option to go another time. When asking pt to return reason why he doesn't want to go and to relay back what we explained to him, pt just shakes his head and states I don't know. He is worried about an ambulance ride and finds numerous other excuses to try to not be transferred.
--- NOTE | 2025-04-29 21:01 | PC.NURSE ---
ERP back in to speak w/ pt and he has agreed to be transferred if his mom can ride along. Calls will be made to [facility] for transfer.
[2025-04-29] MEDS: PIPERACILLIN/TAZOBACTAM SOD 3.375 GM in SODIUM CHLORIDE 0.9% IV 50 ML 100 ML IVPB (21:37)
--- NOTE | 2025-04-29 21:46 | PC.NURSE ---
Pt resting and continuing to monitor, IVF and IV antibx infusing as per order. Explained to pt that he has been accepted by surgeon and [facility] and that we are awaiting bed assignment for transfer. Pt resting w/ eyes closed.
--- NOTE | 2025-04-29 22:46 | PC.NURSE ---
Pt ambulated to BR to urinate, back to bed and placed back on monitor. VSS, pt c/o some slight nausea feeling at this time, order obtained from Dr Bobo.
--- NOTE | 2025-04-29 23:21 | PC.NURSE ---
Call back from [facility] w/ bed assignment, pt will go to Rm [id number]
--- NOTE | 2025-04-30 | PC.NURSE ---
Pt was loaded in back of ambulance and decided to get out of ambulance and wanting to leave, severe anxiety about riding in ambulance, order obtained from ERP to give 2mg Ativan for anxiety to help w/ transfer ride.
[2025-04-30] MEDS: LORazepam INJ (*CRX) 2 MG/ML VIAL IV PUSH (00:01)
== END 2025-04-30 00:05 | disposition short-term general hospital (02) ==
PROVIDERS: Emergency Medicine; Emergency Provider Family Medicine; PCP Physician Assistant
DX: K56.609 Unspecified intestinal obstruction, unspecified as to partial versus complete obstruction (principal); E78.5 Hyperlipidemia, unspecified; I10 Essential (primary) hypertension
CPT/HCPCS: 36415; 74177; 80053; 81003; 83690; 85025; 96365; 96374; 96375; 96376; 99285; J1171; J1200; J2060; J2405; J2543; J7030; Q9967

== ENCOUNTER 2025-05-12 06:35 | Emergency (ER) | payer OTHER, SELFPAY ==
[2025-05-12 06:35] VITALS: BP 131/66; PULSE 73; RESP 18; TEMP 37.3; O2SAT 98
--- OUTSIDE RECORDS SUMMARY | 2025-05-12 06:37 | XMS_ITS | Clinical Summary ---
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 Takes at night Active atenolol (TENORMIN) 50 MG tablet Take 1 tablet (50 mg total) by mouth daily. Takes at night Active traMADol (ULTRAM) 50 MG tablet Take 1 tablet (50 mg total) by mouth 3 (three) times daily. Active diclofenac potassium (CATAFLAM) 50 MG tablet Take 1.5 tablets (75 mg total) by mouth daily as needed. Active omeprazole (PRILOSEC) 40 MG capsule Take 1 capsule (40 mg total) by mouth daily. Active calcium carbonate (TUMS) 500 MG chewable tablet Chew 1 tablet (500 mg total) by mouth daily as needed. 90 tablet 2 05/05/2025 Active oxyCODONE immediate release (ROXICODONE) 5 MG immediate release tabletIndicatio ns:Acute Pain < 7 Day Supply Take 1 tablet (5 mg total) by mouth every 6 (six) hours as needed. Indications: Acute Pain < 7 Day Supply 20 tablet 05/05/2025 Active polyethylene glycol (GLYCOLAX) packet Take 240 mLs (17 g total) by mouth daily for 28 days. Dissolve powder in 240 mL water 14 each 1 05/05/2025 06/02/20 25 Active Active Problems No known active problems Resolved Problems Problem Noted Date Diagnosed Date Resolved Date SBO (small bowel obstruction ) ([facility]/HCC [facility]) 04/30/2025 05/06/2025 Encounters Date Type Department Care Team Description 05/01/2025 11:00 AM CDT - 05/01/2025 1:22 PM CDT Surgery [facility] [place] [address] [place] [address] Shon Mendez DO EXPLORATORY LAPAROTOMY, BOWEL RESECTION, AND PRIMARY REPAIR OF VENTRAL HERNIA 05/01/2025 8:47 AM CDT Anesthesia Event [facility] [place] [address] [place] [address] Mik Guerra MD Brown, Amber M, CRNA 04/30/2025 1:21 AM CDT - 05/06/2025 3:51 PM CDT Hospital Encounter [facility] Surgical [address] [place] [address] Justine Lawson MD Jabeen, Sayeeda A, MD Zhen, Daniel P, MD Zhang, Damari Castaneda MD Discharge Disposition: Home or Self Care (Routine Discharge) 04/30/2025 Travel from Last 3 Months Social History Tobacco Use Types Packs/Day Years Used Date Smoking Tobacco: Never Smokeless Tobacco: Never Tobacco Cessation:Counseling Given: Not Answered B1300 Health Literacy Answer Date Recor ded How often do you need to hav e someone help you when you read instructions, pamphlets, or other written material from your doctor or pharmacy? Rarely 04/30/2025 [facility] Utilities Answer Date Recorded In the past 12 months has [facility] [employer], gas, oil, or water [employer] threatened to shut off services in your home? No 04/30/2025 Humiliation, Afraid, Rape, and Kick questionnair e Answer Date Recorded Within the last year, have y ou been afraid of your partner or ex-partner? No 04/30/2025 Within the last year, have y ou been humiliated or emotionally abused in other ways by your partner or ex-partner? No Within the last year, have y ou been kicked, hit, slapped, or otherwise physically hurt by your partner or ex-partner? No 04/30/2025 Within the last year, have y ou been raped or forced to have any kind of sexual activity by your partner or ex-partner? No 04/30/2025 Social Connection and Isolation Panel [NHANES] A nswer Date Recorded In a typical week, how many times do you talk on the phone with family, friends, or neighbors? Never 04/30/2025 How often do you get together with friends or re latives? Never 04/30/2025 How often do you attend gnosticist or buddhism serv ices? Never 04/30/2025 Do you belong to any clubs o r organizations such as gnosticist groups, unions, fraternal or athletic groups, or school groups? No 04/30/2025 How often do you attend meet ings of the clubs or organizations you belong to? Never 04/30/2025 Are you , , di vorced, , never , or living with a partner? Never 04/30/2025 AUDIT-C Answer Date Recorded Q1: How often do you have a drink containing alc ohol? Monthly or less 04/30/2025 Q2: How many drinks containi ng alcohol do you have on a typical day when you are drinking? 1 or 2 04/30/2025 Q3: How often do you have si x or more drinks on one occasion? Never 04/30/2025 Overall Financial Resource Strain (CARDIA) Answe r Date Recorded How hard is it for you to pa y for the very basics like food, housing, medical care, and heating? Not very hard 04/30/2025 PHQ-2 Answer Date Recorded Patient Health Questionnaire-2 Score 0 04/30/2025 [facility] Occupational Stress Questionnaire Answer Date Recorded Do you feel stress - tense, restless, nervous, or anxious, or unable to sleep at night because your mind is troubled all the time - these days? To some extent 04/30/2025 Exercise Vital Sign Answer Date Recorde d On average, how many days pe r week do you engage in moderate to strenuous exercise (like a brisk walk)? 2 days 04/30/2025 On average, how many minutes do you engage in exercise at this level? 30 min 04/30/2025 Hunger Vital Sign Answer Date Recorded Within the past 12 months, y ou worried that your food would run out before you got the money to buy more. Never true 04/30/20 25 Within the past 12 months, t he food you bought just didn't last and you didn't have money to get more. Never true 04/30/2025 PRAPARE - Transportation Answer Date Re corded In the past 12 months, has l ack of transportation kept you from medical appointments or from getting medications? No 04/13 In the past 12 months, has l ack of transportation kept you from meetings, work, or from getting things needed for daily living? No 04/30/2025 Housing Stability Vital Sign Answer Karl e Recorded In the last 12 months, was t here a time when you were not able to pay the mortgage or rent on time? No 04/30/2025 In the past 12 months, how m any times have you moved where you were living? 0 04/30/2025 At any time in the past 12 m [facility], were you homeless or living in a nursing home (including now)? No 04/30/2025 Sex and Gender Information Value Date Recorded Sex Assigned at Male 04/30/2025 2:06 AM CDT Legal Sex Male 9:22 PM CDT Gender Identity Male 04/30/2025 2:06 AM CDT Sexual Orientation Not on file Last Filed Vital Signs Vital Sign Reading Time Taken Comments Blood Pressure 115/77 05/06/2025 11:31 AM CDT Pulse 97 05/06/2025 11:31 AM CDT Temperature 37 C (98.6 F) 05/06/2025 11:31 AM CDT Respiratory Rate 16 05/06/2025 11:3 1 AM CDT Oxygen Saturation 94% 05/06/2025 11: 31 AM CDT Inhaled Oxygen Concentration - - Weight 109.9 kg (242 lb 3.2 oz) 04/30/2025 1:37 AM CDT Height 185.4 cm (6' 1) 04/30/2025 1:37 AM CDT Body Mass Index 31.95 04/30/2025 1:37 AM CDT Plan of Treatment Health Maintenance Due Date Last Done Comments Colorectal Cancer Screening Colonoscopy (10 Years) 1967 Annual Physical 1970 Hepatitis C 1985 DTaP, Tdap and Td Vaccines ( 1 - Tdap) 1986 Hepatitis B Vaccines (1 of 3 - 19+ 3-dose series) 1986 Pneumococcal Vaccine: 50+ Ye ars (1 of 1 - PCV) 2017 Zoster Vaccines (1 of 2) 2017 COVID-19 Vaccine ( - 2023-2 5 season) 2024 Meningococcal B Vaccine Aged Out No l onger eligible based on patient's age to complete this topic Meningococcal Vaccine Aged Out No annmarie alberto eligible based on patient's age to complete this topic RSV Immunizations Under 20 Months Aged Out No longer eligible based on patient's age to complete this topic Procedures Procedure Name Priority Date/Time Associated Diagnosis Comments CBC W/DIFF AUTOMATED Routine 05/06/2025 2:20 AM CDT BASIC METABOLIC PANEL Routine 05/06/2025 2:20 AM CDT XR ABD KUB STAT 05/05/2025 12:57 PM CDT CBC W/DIFF AUTOMATED Routine 05/05/2025 3:40 AM CDT BASIC METABOLIC PANEL Routine 05/05/2025 3:40 AM CDT POCT GLUCOSE - DOCKED DEVICE Routine 05/04/2025 5:13 PM CDT POCT GLUCOSE - DOCKED DEVICE Routine 05/04/2025 11:28 AM CDT POCT GLUCOSE - DOCKED DEVICE Routine 05/04/2025 6:19 AM CDT CBC W/DIFF AUTOMATED Routine 05/04/2025 4:23 AM CDT BASIC METABOLIC PANEL Routine 05/04/2025 4:23 AM CDT PHOSPHORUS, INORGANIC PHOSPHATE Routine 05/04/2025 4:23 AM CDT MAGNESIUM Routine 05/04/2025 4:23 AM CDT POCT GLUCOSE - DOCKED DEVICE Routine 05/03/2025 11:42 PM CDT POCT GLUCOSE - DOCKED DEVICE Routine 05/03/2025 4:33 PM CDT POCT GLUCOSE - DOCKED DEVICE Routine 05/03/2025 10:34 AM CDT POCT GLUCOSE - DOCKED DEVICE Routine 05/03/2025 5:56 AM CDT PHOSPHORUS, INORGANIC PHOSPHATE Routine 05/03/2025 3:45 AM CDT MAGNESIUM Routine 05/03/2025 3:45 AM CDT CBC W/DIFF AUTOMATED Routine 05/03/2025 3:45 AM CDT BASIC METABOLIC PANEL Routine 05/03/2025 3:45 AM CDT POCT GLUCOSE - DOCKED DEVICE Routine 05/03/2025 12:50 AM CDT POCT GLUCOSE - DOCKED DEVICE Routine 05/02/2025 4:09 PM CDT POCT GLUCOSE - DOCKED DEVICE Routine 05/02/2025 11:54 AM CDT POCT GLUCOSE - DOCKED DEVICE Routine 05/02/2025 5:35 AM CDT PHOSPHORUS, INORGANIC PHOSPHATE Routine 05/02/2025 3:30 AM CDT MAGNESIUM Routine 05/02/2025 3:30 AM CDT CBC W/DIFF AUTOMATED Routine 05/02/2025 3:30 AM CDT BASIC METABOLIC PANEL Routine 05/02/2025 3:30 AM CDT POCT GLUCOSE - DOCKED DEVICE Routine 05/01/2025 11:45 PM CDT POCT GLUCOSE - DOCKED DEVICE Routine 05/01/2025 6:03 PM CDT POCT GLUCOSE - DOCKED DEVICE Routine 05/01/2025 12:55 PM CDT LAPAROSCOPIC HERNIA VENTRAL 05/01/2025 8:32 AM CDT VENTRAL HERNIA Case Notes OC#3 WANTS FIRST AVAILABLEADDED 04/30/25 @ 1233 TYPE & SCREEN STAT 05/01/2025 7:26 AM CDT LACTIC ACID STAT 05/01/2025 7:26 AM CDT POCT GLUCOSE - DOCKED DEVICE Routine 05/01/2025 5:45 AM CDT MAGNESIUM Routine 05/01/2025 2:36 AM CDT COMPREHENSIVE METABOLIC PANEL Routine 05/01/2025 2:36 AM CDT CBC W/DIFF AUTOMATED Routine 05/01/2025 2:36 AM CDT PATHOLOGY Routine 05/01/2025 12:00 AM CDT POCT GLUCOSE - DOCKED DEVICE Routine 04/30/2025 11:32 PM CDT LACTIC ACID STAT 04/30/2025 5:47 PM CDT CBC W/DIFF AUTOMATED STAT 04/30/2025 5:47 PM CDT USV VAST TEAM MIDLINE INSERT >5YR STAT 04/30/2025 11:17 AM CDT XR CHEST PORTABLE STAT 04/30/2025 10:19 AM CDT LACTIC ACID STAT 04/30/2025 2:12 AM CDT MAGNESIUM Routine 04/30/2025 2:12 AM CDT COMPREHENSIVE METABOLIC PANEL Routine 04/30/2025 2:12 AM CDT CBC W/DIFF AUTOMATED Routine 04/30/2025 2:12 AM CDT from Last 3 Months Results * (ABNORMAL) BASIC METABOLIC PANEL (05/06/2025 2:20 AM CDT) Only the most recent of5 resultswithin the time period is included. SODIUM S/P/B 135(L) 136 - 145 MMOL/L 05/06/2025 3:[address] [facility] POTASSIUM S/P/B 3.4(L) 3.5 - 5.1 MMOL/L 05/06/2025 3:[address] [facility] CHLORIDE S/P/B 102 97 - 115 MMOL/L 05/06/2025 3:[address] [facility] CO2 27.1 21.0 - 32.0 MMOL/L 05/06/2025 3:[address] [facility] GLUCOSE 145(H) 74 - 106 MG/DL 05/06/2025 3:[address] [facility] BUN 15 7 - 18 MG/DL 05/06/2025 3:[address] [facility] CREATININE S/P/B 0.93 0.70 - 1.30 MG/DL 05/06/2025 3:[address] [facility] CALCIUM S/P/B 8.6 8.5 - 10.1 MG/DL 05/06/2025 3:[address] [facility] ANION GAP 5.9 2.0 - 10.0 MMOL/L 05/06/2025 3:[address] [facility] OSMOLALITY (CALC) 283 MOSM/KG 025 3:[address] [facility] Comment:REFERENCE RANGE NOT ESTABLISHED GFR ESTIMATE >90 >90 ML/MIN/1. 73 M2 05/06/2025 3:[address] [facility] GFR NOTES GFR REFERENCE S: 05/06/2025 3:[address] [facility] Comment: THE ESTIMATED GFR IS CALCULATED USING THE 2020 CKD-EPI EQUATION. THE FOLLOWING CATEGORIES FOR GRADING RENAL FUNCTION ARE RECOMMENDED BY THE INTERNATIONAL SOCIETY OF NEPHROLOGY (KDIGO 2012 CLINICAL PRACTICE GUIDELINE). G1,NORMAL OR HIGH: >89 ml/min/1.73 m2 G2,MILDLY DECREASED: 60-89 ml/min/1.73 m2 G3A,MILDLY TO MODERATELY DECREASED: 45-59 ml/min/1.73 m2 G3B,MODERATELY TO SEVERELY DECREASED: 30-44 ml/min/1.73 m2 G4,SEVERELY DECREASED: 15-29 ml/min/1.73 m2 G5,KIDNEY FAILURE: <15 ml/min/1.73 m2 05/06/2025 2:20 AM CDT us Damari Saunders MD LABORATORY Final Resu lt [facility] [address] [place] [address], [id number] * (ABNORMAL) CBC W/DIFF AUTOMATED (05/06/2025 2:20 AM CDT) Only the most recent of8 resultswithin the time period is included. WBC 14.40(H) 4.00 - 10.80 x10'3/uL 05/06/2025 2:[address] [facility] RBC 4.65 4.50 - 6.10 x10'6/uL 05/06/2025 2:[address] [facility] HGB 12.6(L) 13.0 - 18.0 G/DL 05/06/2025 2:[address] [facility] HCT 39.9 37.0 - 52.0 % 05/06/2025 2:[address] [facility] MCV 85.8 78.0 - 100.0 FL 05/06/2025 2:[address] [facility] MCH 27.1 27.0 - 31.0 PG 05/06/2025 2:[address] [facility] MCHC 31.6(L) 33.0 - 36.0 G/DL 05/06/2025 2:[address] [facility] RDW 13.4 11.5 - 14.5 % 05/06/2025 2:[address] [facility] PLT 431(H) 150 - 350 x10'3/uL 05/06/2025 2:[address] [facility] MPV 9.3 7.4 - 10.4 FL 05/06/2025 2:[address] [facility] DIFFERENTIAL TYPE AUTOMATED DIFFERENTIAL 05/06/2025 2:[address] [facility] SEG NEUTROPHILS 78.4 % 2:[address] [facility] LYMPHOCYTES 9.5 % 05/06/2025 2:[address] [facility] MONOCYTES 10.1 % 05/06/2025 2:[address] [facility] EOSINOPHILS 0.8 % 05/06/2025 2:[address] [facility] BASOPHILS 0.3 % 05/06/2025 2:[address] [facility] IMMATURE GRANS % 0.9 % 05/06/20 2:[address] [facility] ABS. NEUTROPHILS 11.29(H) 1.60 - 8.30 x10'3/uL 05/06/2025 2:[address] [facility] ABS. LYMPHOCYTES 1.37 0.80 - 4.70 x10'3/uL 05/06/2025 2:[address] [facility] ABS. MONOCYTES 1.46 0.00 - 1.50 x10'3/uL 05/06/2025 2:[address] [facility] ABS. EOSINOPHILS 0.11 0.00 - 0.40 x10'3/uL 05/06/2025 2:[address] [facility] ABS. BASOPHILS 0.04 0.00 - 0.20 x10'3/uL 05/06/2025 2:[address] [facility] ABS. IMMATURE GRANULOCYTES 0.13(H) 0.00 - 0.03 x10'3/uL 05/06/2025 2:[address] [facility] ABS. NUCLEATED RBC'S 0.00 0.00 - 0.01 x10'3/uL 05/06/2025 2:[address] [facility] NRBC % 0.0 % 05/06/2025 2:[address] [facility] 05/06/2025 2:20 AM CDT us Damari Saunders MD LABORATORY Final Resu lt [facility] [address] [place] [address], [phone] * XR ABD KUB (05/05/2025 12:57 PM CDT) Anatomical Region Laterality Modality Abdomen Radiographic Yolis ging 05/05/2025 1:01 PM CDT Impressions 05/05/2025 1:02 PM CDT IMPRESSION: 1. ABNORMAL BOWEL GAS PATTERN SUGGESTING PARTIAL MECHANICAL SMALL BOWEL OBSTRUCTION. Signed: Clayton Holley MD Referred By: YOCASTA PAUL Interpreted By: Clayton Holley MD, 05/05/2025 1:01 PM Narrative 05/05/2025 1:02 PM CDT [facility] [address] [place], [place] [address] PATIENT NAME: NATAN GARRETT EXAM: Abdomen one view DATE OF EXAM: 05/05/2025 COMPARISON EXAM: None INDICATION: Vomiting TECHNIQUE: Supine AP abdomen/pelvis FINDINGS: Surgical clips are noted in the midline. Abnormal bowel gas pattern. There is significantly dilated loops of small bowel in left upper quadrant and central abdomen. Distal small bowel and colon are decompressed. Findings suggest partial mechanical small bowel obstruction. Small amount of retained contrast within colon. No evidence of organomegaly or mass lesion. Procedure Note Clayton Hollye MD - 05/05/2025 [place] [id number] PATIENT NAME: NATAN GARRETT EXAM: Abdomen one view DATE OF EXAM: 05/05/2025 COMPARISON EXAM: None INDICATION: Vomiting TECHNIQUE: Supine AP abdomen/pelvis FINDINGS: Surgical clips are noted in the midline. Abnormal bowel gaspattern. There is significantly dilated loops of small bowel in leftupper quadrant and central abdomen. Distal small bowel and colon aredecompressed. Findings suggest partial mechanical small bowelobstruction. Small amount of retained contrast within colon. No evidenceof organomegaly or mass lesion. IMPRESSION: 1. ABNORMAL BOWEL GAS PATTERN SUGGESTING PARTIAL MECHANICAL SMALL BOWELOBSTRUCTION. Signed: Clayton Holley MD Referred By: YOCASTA PAUL Interpreted By: Clayton Holley MD, 05/05/2025 1:01 PM Damari Saunders MD GENERAL IMAGING Final Resu lt * (ABNORMAL) POCT glucose (05/04/2025 5:13 PM CDT) Only the most recent of16 resultswithin the time period is included. GLUCOSE POC 125(H) 70 - 109 05/04/2025 5:[address] [facility] 05/04/2025 5:13 PM CDT Damari Saunders MD POCT ORDERABLES - DEVICE F inal Result [facility] [address] [place] [address], [phone] * (ABNORMAL) PHOSPHORUS, INORGANIC PHOSPHATE (05/04/2025 4:23 AM CDT) Only the most recent of3 resultswithin the time period is included. PHOSPHORUS 2.2(L) 2.5 - 4.9 MG/DL 05/04/2025 4:[address] [facility] 05/04/2025 4:23 AM CDT us Dedrick Luis MD LABORATORY Final Result Performing Organization Address [facility] de Phone Number [facility] [address] [place] [address], [phone] * MAGNESIUM (05/04/2025 4:23 AM CDT) Only the most recent of5 resultswithin the time period is included. MAGNESIUM 2.5 1.6 - 2.6 MG/DL 05/04/2025 4:[address] [facility] 05/04/2025 4:23 AM CDT us Dedrick Luis MD LABORATORY Final Result Performing Organization Address [facility] de Phone Number [facility] [address] [place] [address], [phone] * TYPE & SCREEN (05/01/2025 7:26 AM CDT) ABO/RH O POSITIVE 05/01/2025 8:[address] [facility] ANTIBODY SCREEN NEGATIVE 05/01/2025 8:[address] [facility] SAMPLE EXPIRATION 05/04/2025,2 359 05/01/2025 7:[address] [facility] 05/01/2025 7:26 AM CDT us Jayy CORBIN BLOOD BANK TEST ORDERABLES Fi nal Result Performing Organization Address [facility]/ZIP Co de Phone Number [facility] [address] [place] [address], [place] [phone] * LACTIC ACID (05/01/2025 7:26 AM CDT) Only the most recent of3 resultswithin the time period is included. LACTIC ACID VENOUS 2.0 0.4 - 2.0 MMOL/L 05/01/2025 7:[address] [facility] 05/01/2025 7:26 AM CDT Jayy CORBIN LABORATORY Final Result [facility] [address] [place] [address], [place] [phone] * (ABNORMAL) COMPREHENSIVE METABOLIC PANEL (05/01/2025 2:36 AM CDT) Only the most recent of2 resultswithin the time period is included. SODIUM S/P/B 135(L) 136 - 145 MMOL/L 05/01/2025 3:[address] [facility] POTASSIUM S/P/B 3.7 3.5 - 5.1 MMOL/L 05/01/2025 3:[address] [facility] CHLORIDE S/P/B 102 97 - 115 MMOL/L 05/01/2025 3:[address] [facility] CO2 25.7 21.0 - 32.0 MMOL/L 05/01/2025 3:[address] [facility] GLUCOSE 144(H) 74 - 106 MG/DL 05/01/2025 3:[address] [facility] BUN 10 7 - 18 MG/DL 05/01/2025 3:[address] [facility] CREATININE S/P/B 1.13 0.70 - 1.30 MG/DL 05/01/2025 3:[address] [facility] CALCIUM S/P/B 9.3 8.5 - 10.1 MG/DL 05/01/2025 3:[address] [facility] BILIRUBIN TOTAL S/P/B 1.1(H) 0.2 - 1.0 MG/DL 05/01/2025 3:21 AM [facility] ALKALINE PHOSPHATASE S/P/B 90 45 - 115 U/L 05/01/2025 3:[address] [facility] AST 52(H) 15 - 37 U/L 05/01/2025 3:[address] [facility] ALT 64(H) 16 - 61 U/L 05/01/2025 3:21 AM [facility] TOTAL PROTEIN S/P/B 8.1 6.4 - 8.2 G/DL 05/01/2025 3:21 AM [facility] ALBUMIN S/P/B 3.6 3.4 - 5.0 G/DL 05/01/2025 3:21 AM [facility] ANION GAP 7.3 2.0 - 10.0 MMOL/L 05/01/2025 3:21 AM [facility] OSMOLALITY (CALC) 282 MOSM/KG 025 3:21 AM [facility] Comment:REFERENCE RANGE NOT ESTABLISHED GFR ESTIMATE 76(L) >90 ML/MIN/1. 73 M2 05/01/2025 3:21 AM [facility] GFR NOTES GFR REFERENCE S: 05/01/2025 3:21 AM [facility] Comment: THE ESTIMATED GFR IS CALCULATED USING THE 2020 CKD-EPI EQUATION. THE FOLLOWING CATEGORIES FOR GRADING RENAL FUNCTION ARE RECOMMENDED BY THE INTERNATIONAL SOCIETY OF NEPHROLOGY (KDIGO 2012 CLINICAL PRACTICE GUIDELINE). G1,NORMAL OR HIGH: >89 ml/min/1.73 m2 G2,MILDLY DECREASED: 60-89 ml/min/1.73 m2 G3A,MILDLY TO MODERATELY DECREASED: 45-59 ml/min/1.73 m2 G3B,MODERATELY TO SEVERELY DECREASED: 30-44 ml/min/1.73 m2 G4,SEVERELY DECREASED: 15-29 ml/min/1.73 m2 G5,KIDNEY FAILURE: <15 ml/min/1.73 m2 05/01/2025 2:36 AM CDT Justine Lawson MD LABORATORY Final Res ult [facility] [address] [place] [address], [phone] * Pathology (05/01/2025 12:00 AM CDT) PATHOLOGY [facility] Department of Laboratory Medicine [address] [place] [phone] , extension [phone] Pathology Report Surgical Pathology Report Name: NATAN GARRETT Specimen #: [id number] Age: 1 1965 (Age: 59) Location: [facility] Sex: M Procedure Date: 05/01/2025 [facility] #: [id number] Date Received: 05/03/2025 Date Reported: 05/05/2025 Provider: SHON LAWSON MD Source: A: Hernia sac B: Incarcerated omentum C: Incarcerated small intestine D: Soft tissue, small bowel lipoma Clinical History: Ventral hernia FINAL DIAGNOSIS: A. Soft tissue, hernia sac, excision: - Hernial tissues with acute and organizing inflammation. B. Incarcerated omentum, omentectomy: - Omental tissues. C. Incarcerated small bowel, resection: - Small bowel with ischemic changes, consistent with small bowel incarceration. D. Soft tissue, small bowel lipoma, excision: - Mature adipose tissue with organizing fat necrosis. Gross Description: A. In formalin, labeled with a patient label and as hernia sac is an 8.5 cm sac shaped piece of fibromembranous tissue with a small amount of attached soft tissue. The surfaces of the specimen are smooth, and no discrete lesions are noted on section. Procedures Tech tissue is submitted in cassette A1. B. Received in formalin, labeled with a patient label and as incarcerated omentum is a 27 x 13 x 4 cm portion of lobulated yellow omental tissue. The surfaces are smooth and glistening. Sections reveal that the specimen is composed of soft lobulated yellow adipose tissue with some dilated vessels identified. No discrete lesions are noted grossly. Procedures Tech tissue is submitted in cassettes B1 and B2. C. Received in formalin, labeled with a patient label and as incarcerated small bowel is a 10 cm long segment of small bowel with attached mesenteric soft tissue. The bowel ranges from 2 to 2.5 cm in diameter. The serosal surface exhibits a slight dusky discoloration. The specimen is not oriented. It is opened to reveal that the lumen contains a small amount of fecal material and is lined by a friable, dusky mucosa. Sections reveal that the bowel wall ranges from 0.3 to 0.6 cm in thickness. It exhibits a dusky discoloration as well. No polyps, mass lesions, or transmural defects are identified. The adjacent adipose tissue exhibits some dilated vessels. Procedures Tech tissue is submitted as follows: C1 margins of bowel C2-C4 additional sections of bowel. D. Received in formalin, labeled with a patient label and as small bowel lipoma is a 1.4 x 0.8 x 0.5 cm rounded piece of yellow tissue. The specimen is bisected to reveal that the cut surface is pale yellow-membreno and firm. The specimen is entirely submitted in cassette D1. Gross examination (when applicable), interpretation, and sign out were performed at [facility], [address] [place] [address]. Electronically Signed Out GOVIND DAVALOS MD [facility] TISSUE (OTHER (type in comments)) 05/01/2025 9:40 AM CDT Tissue specimen (specimen) OMENTUM STRUCTURE / Unknown 05/01/2025 10:13 AM CDT Tissue specimen (specimen) (OTHER (type in comments)) 05/01/2025 10:14 AM CDT Tissue specimen (specimen) (OTHER (type in comments)) 05/01/2025 10:14 AM CDT us Shon Mendez DO PATHOLOGY/CYTOLOGY ORDERABLES Fi nal Result [facility] [address] [place] [address], [place] [phone] [id number] * USV VAST TEAM MIDLINE INSERT >5YR (04/30/2025 11:17 AM CDT) Anatomical Region Laterality Modality NA Vascular Ultraso und 04/30/2025 10:4 7 AM CDT Narrative 04/30/2025 10:47 AM CDT This report does not contain a radiologist's interpretation. Please review associated procedure and/or operative report. Procedure Note Romana Rashid MD - 04/30/2025 This report does not contain a radiologist's interpretation. Please review associated procedure and/or operative report. Jose James MD [facility] Final Result * XR CHEST PORTABLE (04/30/2025 10:19 AM CDT) Anatomical Region Laterality Modality Chest Radiographic Yolis ging 04/30/2025 10:2 2 AM CDT Impressions 04/30/2025 10:23 AM CDT impression: NG tube terminates in the distal stomach. Referred By: YOCASTA PAUL Interpreted By: Melo Mendez MD, 04/30/2025 10:22 AM Narrative 04/30/2025 10:23 AM CDT [address] [address] Examination: XR CHEST PORTABLE Exam time: 04/30/2025 10:19 AM Clinical history: NG tube placement Comparison: None Technique: One frontal view of the chest. Findings/ Procedure Note eMlo Mendez MD - 04/30/[address] [address] Examination: XR CHEST PORTABLE Exam time: 04/30/2025 10:19 AM Clinical history: NG tube placement Comparison: None Technique: One frontal view of the chest. Findings/ impression: NG tube terminates in the distal stomach. 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
--- NOTE | 2025-05-12 06:43 | ED.GENADULT ---
HPI - General Adult General Chief complaint: Wound/Laceration Stated complaint: Surgery Wound Check Source: patient and family Mode of arrival: ambulatory Limitations: no limitations History of Present Illness HPI narrative: patient is status post abdominal surgery 1 week ago came to the ED under the impression of removing the chris today in the emergency room. He denies any pain, fever, chills, nausea, vomiting. Patient report that he have no right to go back to the surgeon to remove the chris Related Data Home Medications ?Medication ?Instructions ?Recorded ?Confirmed ?Last Taken ?Type atenolol 50 mg tablet 50 mg DAILY 05/18/22 05/26/24 Unknown History atorvastatin 20 mg tablet 20 mg DAILY 05/18/22 05/26/24 Unknown History lisinopril 20 mg tablet 20 mg DAILY 05/18/22 05/26/24 Unknown History omeprazole 20 mg capsule,delayed 40 mg DAILY 05/18/22 05/26/24 Unknown History release tramadol 50 mg tablet 50 mg TID 05/18/22 05/26/24 Unknown History diclofenac sodium 75 mg 75 mg PO DAILY 05/26/24 05/26/24 Unknown History tablet,delayed release gabapentin 300 mg capsule 300 mg PO DAILY 05/26/24 05/26/24 Unknown History Allergies Allergy/AdvReac Type Severity Reaction Status Date / Time No Known Allergies Allergy Mild Verified 04/29/25 17:27 Review of Systems Review of Systems: All systems reviewed & are unremarkable except as noted in HPI and below PMFSH Past Medical History Medical History GERD (gastroesophageal reflux disease) Hypertension Hyperlipidemia Social History Social History Smoking status: Never smoker Exam Narrative: General appearance: Well-developed, well-nourished Skin: Normal color Chest and respiratory: Airway patent, no respiratory distress, no accessory muscle use Heart: Regular rate/rhythm Abdomen: Soft, nontender, no organomegaly, quiet bowel sounds , surgical wound dry and clean Neurologic: Alert and oriented ?3, 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 Patient was advised to go back to his surgeon for staple removal. Critical Care Time Critical Care Time Critical Care Time: No Discharge Plan Discharge Clinical Impression: Encounter for removal of chris Patient Disposition: Home Condition: Stable Instructions: Care For Your Stitches (ED) Additional Instructions: try to go to your surgeon for staple removal. Patient Language: Wolof Prescriptions: No Action gabapentin 300 mg capsule 300 mg PO DAILY diclofenac sodium 75 mg tablet,delayed release (DR/EC) 75 mg PO DAILY ondansetron 4 mg tablet,disintegrating 4 mg PO Q8H PRN (Reason: nausea and vomiting) Qty: 14 0RF hydrocodone-acetaminophen 5-325 mg tablet 1 tablet PO Q6H PRN (Reason: pain) Qty: 10 0RF atorvastatin 20 mg tablet 20 mg DAILY lisinopril 20 mg tablet 20 mg DAILY tramadol 50 mg tablet 50 mg TID omeprazole 20 mg capsule,delayed release(DR/EC) 40 mg DAILY atenolol 50 mg tablet 50 mg DAILY Follow-up/Referrals: Sharri,SLAVA Singletary [Primary Care Provider] -
== END 2025-05-12 06:57 | disposition home or self-care (01) ==
PROVIDERS: Emergency Provider Emergency Medicine; PCP Physician Assistant
DX: Z48.02 Encounter for removal of sutures (principal); I10 Essential (primary) hypertension; E78.5 Hyperlipidemia, unspecified; Z98.890 Other specified postprocedural states
CPT/HCPCS: 15853; 99282

== ENCOUNTER 2025-07-02 20:47 | Emergency (ER) | payer OTHER, SELFPAY ==
--- NOTE | ~2025-07-02 | XR_ITS ---
X-rays right ankle Indication: Lateral pain after injury Comparison: 11/02/2022 Technique: 4 views right ankle Findings/Impression: 1. Tiny avulsion fracture lateral malleolus tip, associated soft tissue swelling. 2. No other fracture right ankle. 3. Ankle mortise maintained. Reviewed, dictated and finalized at location R.
[2025-07-02 20:50] VITALS: PULSE 90
[2025-07-02 20:52] VITALS: BP 132/81; PULSE 91; RESP 18; TEMP 36.5; O2SAT 98
--- NOTE | 2025-07-02 20:55 | ECG_ITS ---
Test Date: 2025-07-02 21:23:57 Measurements Intervals [place] Rate: 82 P: 27 OK: 160 QRS: 4 QRSD: 91 T: 31 QT: 387 QTc: 453 Interpretive Statements SINUS RHYTHM NONSPECIFIC T-WAVE ABNORMALITY BORDERLINE ECG No previous ECG available for comparison Electronically Signed On 07-03-2025 08:52:59 CDT by Troy Stewart M.D.
--- NOTE | 2025-07-02 20:55 | ED.SYNCOPE ---
HPI - Syncope General Chief Complaint: Syncope Stated Complaint: fell and hurt rigth fooot Time Seen by Provider: 07/02/25 20:54 Source: patient and family Mode of arrival: ambulatory Limitations: no limitations History of Present Illness HPI narrative: Patient is a 59-year-old male with syncopal episode at a football game this evening. He was standing and has not had anything to eat or drink most of the day except a soda. EMS came to see the patient and was found to be an orthostatic hypotension. He hurt his right ankle. MD complaint: loss of consciousness, felt faint and collapsed Onset (ago): minute(s) (Thirty) Duration of episode: 30 -: second(s) Description of event: other (None) Prodromal symptoms: none Witnessed: Yes - by Bystander Context: during exertion Injuries sustained associated with event: RLE (Ankle) Current symptoms: none History: other (None) Treatments prior to arrival: none Related Data Home Medications ?Medication ?Instructions ?Recorded ?Confirmed ?Last Taken ?Type atenolol 50 mg tablet 50 mg DAILY 05/18/22 05/26/24 Unknown History atorvastatin 20 mg tablet 20 mg DAILY 05/18/22 05/26/24 Unknown History lisinopril 20 mg tablet 20 mg DAILY 05/18/22 05/26/24 Unknown History omeprazole 20 mg capsule,delayed 40 mg DAILY 05/18/22 05/26/24 Unknown History release tramadol 50 mg tablet 50 mg TID 05/18/22 05/26/24 Unknown History diclofenac sodium 75 mg 75 mg PO DAILY 05/26/24 05/26/24 Unknown History tablet,delayed release gabapentin 300 mg capsule 300 mg PO DAILY 05/26/24 05/26/24 Unknown History Allergies Allergy/AdvReac Type Severity Reaction Status Date / Time No Known Allergies Allergy Mild Verified 07/02/25 20:54 Review of Systems Review of Systems: All systems reviewed & are unremarkable except as noted in HPI and below Constitutional: Constitutional: Reports no additional constitutional complaints Eyes: Eyes: Reports no additional eye complaints ENT: Reports system reviewed and no additional complaints, except as documented Cardiovascular: Cardiovascular: Reports no additional cardiovascular complaints Respiratory: Respiratory: Reports no additional respiratory complaints Gastrointestinal: Gastrointestinal: Reports no additional gastrointestinal complaints Genitourinary: Genitourinary: Reports no additional male genitourinary complaints Musculoskeletal: Musculoskeletal: Reports no additional musculoskeletal complaints Integumentary/Breasts: Skin/Breast: Reports system reviewed and no additional complaints, except as docu Neurologic: Reports system reviewed and no additional complaints, except as documented Psychiatric: Psychiatric: Reports no additional psychiatric complaints Endocrine: Endocrine: Reports no additional endocrine complaints Hematologic/Lymphatic: Hematologic/Lymphatic: Reports no additional hematologic/lymphatic complaints Allergic/Immunologic: Allergic/Immunologic: Reports no additional allergic/immunologic complaints PMFSH Past Medical History Medical History GERD (gastroesophageal reflux disease) Hypertension Hyperlipidemia Social History Social History Smoking status: Never smoker Exam Const: General: healthy appearing Nutritional Appearance: well nourished Orientation/consciousness: patient oriented x3 HENMT: Head: normal to inspection Ears: external ears normal Face/Nose/Sinus: Normal external nose present Eyes: Conjunctivae: conjunctivae normal Pupils: Equal, round and reactive pupils present EOM: EOMs intact bilaterally Neck: Neck: normal visual inspection Chest: Chest palpation & inspection: normal inspection of the chest Resp: Effort & Inspection: normal respiratory effort and not labored Auscultation: clear to auscultation bilaterally and no crackles Cardio: Rate: regular rate Rhythm: regular rhythm Heart sounds: no murmurs GI: Inspection: non-distended GI Palp: Yes Soft to palpation and No Tenderness to palpation present (GI) Auscultation: normal bowel sounds : General: Yes bladder normal to palpation Back/Spine/Pelvis: Back: no CVA tenderness Skin: General skin exam: normal color Rashes: no rashes Wounds: no wounds Neuro: General: patient oriented x3, moves all extremities and no meningeal signs Cranial nerves: Yes Nystagmus not present Speech: normal speech Gait exam (Neuro): Normal gait present Extrem: General: normal to inspection, no clubbing, cyanosis or edema and no pedal edema Psych: Mental Status: mental status grossly normal Affect: Anxious affect present Attitude: cooperative Course Vital Signs Vital signs: Vital Signs Pulse Rate 90 07/02/25 20:50 Temperature 36.5 C 07/02/25 20:52 Pulse Rate 86 07/02/25 21:31 Respiratory Rate 14 07/02/25 21:31 Blood Pressure 125/72 07/02/25 21:31 Pulse Oximetry 98 07/02/25 21:01 Oxygen Delivery Room Air 07/02/25 20:52 MDM - Syncope MDM Narrative Medical decision making narrative: Patient is a 59-year-old male with syncopal episode at a football game this evening. We will do a neurocardiogenic workup at this time. Patient declined CT scan as he has too much anxiety and cannot get through a CT scan. He is AAO x4. Patient has medical decision-making capacity at this time to finalize studies. Lab Data Attestation: I reviewed the patient's lab results. 07/02/25 21:32 07/02/25 21:32 Labs: Lab Results 07/02/25 07/02/25 07/02/25 Range/Units 20:56 21:32 23:49 WBC 14.0 H (4.8-10.8) K/mm3 RBC 5.00 (4.70-6.10) M/mm3 Hgb 13.3 L (14.0-18.0) g/dL Hct 42.8 (40.0-54.0) % MCV 85.6 (78.0-102.0) fL MCH 26.6 L (27.0-31.0) pg MCHC 31.1 L (32-36) g/dL RDW 13.4 (11.6-14.4) % Plt Count 356 (150-420) K/mm3 MPV 9.7 (8.7-11.0) fl Immature Gran % (Auto) 0.5 H (0.0-0.0) % Neut % (Auto) 71.3 H (50.0-70.0) % Lymph % (Auto) 19.9 (18.0-42.0) % [place] % (Auto) 6.1 (2.0-11.0) % Eos % (Auto) 1.2 (1.0-6.0) % Baso % (Auto) 1.0 (0.0-1.0) % Lymph # (Auto) 2.79 (1.10-4.50) K/mm3 [place] # (Auto) 0.85 (0.10-0.90) K/mm3 Eos # (Auto) 0.17 (0.02-0.50) K/mm3 Baso # (Auto) 0.14 H (0.00-0.10) K/mm3 Abs Immat Gran (auto) 0.07 H (0.00-0.00) K/mm3 Absolute Neuts (auto) 9.99 H (1.70-7.20) K/mm3 Absolute Nucleated RBC 0.00 (0.00-0.00) K/mm3 Nucleated RBC % 0.0 (0-0.0) % Sodium 139 (137-145) mmol/L Potassium 4.0 (3.4-5.0) mmol/L Chloride 102 (98-107) mmol/L Carbon Dioxide 22 (22-30) mmol/L Anion Gap 15 H (4-12) mmol/L BUN 13 (9-20) mg/dL Creatinine 1.16 (0.7-1.3) mg/dL Estim Creat Clear Calc 71 ml/min Estimated GFR > 60 (59 - ) Glucose 209 H (65-110) mg/dL Calculated Osmolality 294 (285-295) mOsm/kg Lactic Acid 3.5 H (0.4-2.0) mmol/L Calcium 9.6 (8.4-10.2) mg/dL Total Bilirubin 0.6 (0.2-1.3) mg/dL AST 65 H (17-59) U/L ALT 73 H (6-50) U/L Alkaline Phosphatase 106 (38-126) U/L Troponin I < 0.012 (0.000-0.034) ng/mL Total Protein 10.5 H (6.3-8.2) g/dL Albumin 4.7 (3.5-5.1) g/dL Urine Color Light yellow (Yellow) Urine Appearance Clear (Clear) Urine pH 6.0 (5.0-8.0) Ur Specific [place] <= 1.005 L (1.010-1.020) Urine Protein Negative (Negative) Urine Glucose (UA) Negative (Negative) Urine Ketones Negative (Negative) Ur Blood (Man) Negative (Negative) Urine Nitrate Negative (Negative) Urine Bilirubin Negative (Negative) Urine Urobilinogen 0.2 (0.2-1.0) mg/dL Leukocyte Esterase Rfl Negative (Negative) JENNY/UL Urine Opiates Screen Negative (Negative) Urine Methadone Screen Negative (Negative) Ur Barbiturates Screen Negative (Negative) Ur Phencyclidine Scrn Negative (Negative) Ur Amphetamine Screen Negative (Negative) U Benzodiazepines Scrn Negative (Negative) Urine Cocaine Screen Negative (Negative) U Cannabinoids Screen Negative (Negative) Ethyl Alcohol < 10 (<10) mg/dL 07/03/25 Range/Units 00:46 WBC (4.8-10.8) K/mm3 RBC (4.70-6.10) M/mm3 Hgb (14.0-18.0) g/dL Hct (40.0-54.0) % MCV (78.0-102.0) fL MCH (27.0-31.0) pg MCHC (32-36) g/dL RDW (11.6-14.4) % Plt Count (150-420) K/mm3 MPV (8.7-11.0) fl Immature Gran % (Auto) (0.0-0.0) % Neut % (Auto) (50.0-70.0) % Lymph % (Auto) (18.0-42.0) % [place] % (Auto) (2.0-11.0) % Eos % (Auto) (1.0-6.0) % Baso % (Auto) (0.0-1.0) % Lymph # (Auto) (1.10-4.50) K/mm3 [place] # (Auto) (0.10-0.90) K/mm3 Eos # (Auto) (0.02-0.50) K/mm3 Baso # (Auto) (0.00-0.10) K/mm3 Abs Immat Gran (auto) (0.00-0.00) K/mm3 Absolute Neuts (auto) (1.70-7.20) K/mm3 Absolute Nucleated RBC (0.00-0.00) K/mm3 Nucleated RBC % (0-0.0) % Sodium (137-145) mmol/L Potassium (3.4-5.0) mmol/L Chloride (98-107) mmol/L Carbon Dioxide (22-30) mmol/L Anion Gap (4-12) mmol/L BUN (9-20) mg/dL Creatinine (0.7-1.3) mg/dL Estim Creat Clear Calc ml/min Estimated GFR (59 - ) Glucose (65-110) mg/dL Calculated Osmolality (285-295) mOsm/kg Lactic Acid 1.9 (0.4-2.0) mmol/L Calcium (8.4-10.2) mg/dL Total Bilirubin (0.2-1.3) mg/dL AST (17-59) U/L ALT (6-50) U/L Alkaline Phosphatase (38-126) U/L Troponin I (0.000-0.034) ng/mL Total Protein (6.3-8.2) g/dL Albumin (3.5-5.1) g/dL Urine Color (Yellow) Urine Appearance (Clear) Urine pH (5.0-8.0) Ur Specific [place] (1.010-1.020) Urine Protein (Negative) Urine Glucose (UA) (Negative) Urine Ketones (Negative) Ur Blood (Man) (Negative) Urine Nitrate (Negative) Urine Bilirubin (Negative) Urine Urobilinogen (0.2-1.0) mg/dL Leukocyte Esterase Rfl (Negative) JENNY/UL Urine Opiates Screen (Negative) Urine Methadone Screen (Negative) Ur Barbiturates Screen (Negative) Ur Phencyclidine Scrn (Negative) Ur Amphetamine Screen (Negative) U Benzodiazepines Scrn (Negative) Urine Cocaine Screen (Negative) U Cannabinoids Screen (Negative) Ethyl Alcohol (<10) mg/dL ABG Data Attestation: I personally reviewed and interpreted this ABG as follows: Imaging Data Attestation: I personally reviewed and interpreted this imaging study as follows: My impression: Right ankle x-ray shows no acute findings with pending final reading ECG Data EKG #1: Attestation: I personally reviewed and interpreted this ECG as follows: ECG completion date: 07/02/25 ECG completion time: 22:44 EKG Interpretation: normal rate, sinus rhythm, no ectopy, non-specific ST changes, normal QT and left axis Discharge Plan Discharge Clinical Impression: Syncope due to orthostatic hypotension, Acute dehydration Patient Disposition: Acute Care Hospital Condition: Stable Patient Language: Indonesian Prescriptions: No Action gabapentin 300 mg capsule 300 mg PO DAILY diclofenac sodium 75 mg tablet,delayed release (DR/EC) 75 mg PO DAILY ondansetron 4 mg tablet,disintegrating 4 mg PO Q8H PRN (Reason: nausea and vomiting) Qty: 14 0RF hydrocodone-acetaminophen 5-325 mg tablet 1 tablet PO Q6H PRN (Reason: pain) Qty: 10 0RF atorvastatin 20 mg tablet 20 mg DAILY lisinopril 20 mg tablet 20 mg DAILY tramadol 50 mg tablet 50 mg TID omeprazole 20 mg capsule,delayed release(DR/EC) 40 mg DAILY atenolol 50 mg tablet 50 mg DAILY Follow-up/Referrals: Mitchell Bobo DO [Primary Care Provider, [facility]] Time of Disposition: 01:29
[2025-07-02 21:01] VITALS: BP 131/72; PULSE 86; RESP 16; O2SAT 98
[2025-07-02 21:25] VITALS: BP 143/66; PULSE 82; RESP 20
[2025-07-02 21:31] VITALS: BP 125/72; PULSE 86; RESP 14
[2025-07-02 21:40] LABS: Hematocrit 42.8 % (40.0-54.0); Hemoglobin 13.3 g/dL (14.0-18.0); Immature Granulocyte Percent A 0.5 % (0.0-0.0); Lymphocytes Absolute Auto 2.79 K/mm3 (1.10-4.50); Mean Corpuscular HGB Conc 31.1 g/dL (32-36); Mean Corpuscular Hemoglobin 26.6 pg (27.0-31.0); Mean Corpuscular Volume 85.6 fL (78.0-102.0); Nucleated Red Blood Cells Absolute Auto 0.00 K/mm3 (0.00-0.00); Nucleated Red Blood Cells Perc 0.0 % (0-0.0); Platelet Count Result 356 K/mm3 (150-420); Red Blood Count 5.00 M/mm3 (4.70-6.10); White Blood Count 14.0 K/mm3 (4.8-10.8)
[2025-07-02] MEDS: SODIUM CHLORIDE 0.9% IV 1,000 ML 999 ML IV CONT ×2 (21:40→23:37)
[2025-07-02 21:48] LABS: Alanine Aminotransferase 73 U/L (6-50); Albumin Level 4.7 g/dL (3.5-5.1); Alkaline Phosphatase 106 U/L (38-126); Anion Gap 15 mmol/L (4-12); Aspartate Amino Transferase 65 U/L (17-59); Bilirubin,Total 0.6 mg/dL (0.2-1.3); Blood Urea Nitrogen 13 mg/dL (9-20); Calcium 9.6 mg/dL (8.4-10.2); Carbon Dioxide 22 mmol/L (22-30); Chloride 102 mmol/L (98-107); Estimated CRCL calculation 71 ml/min; Estimated Glomerular Filt Rate > 60; Glucose 209 mg/dL (65-110); Osmolality Calculated 294 mOsm/kg (285-295); Potassium 4.0 mmol/L (3.4-5.0); Sodium 139 mmol/L (137-145); Total Protein 10.5 g/dL (6.3-8.2)
[2025-07-03] VITALS: BP 132/75; PULSE 75; RESP 18; O2SAT 98
[2025-07-03 00:20] LABS: Add Urine Microscopic? NO; Appearance Urine Clear (Clear); Glucose Urine UA Negative (Negative); Leukocyte Esterase Ur Negative LEU/UL (Negative); Nitrate Urine Negative (Negative); Specific Grav Ur <= 1.005 (1.010-1.020)
[2025-07-03 00:28] LABS: Cannabinoid Screen Urine Negative (Negative)
[2025-07-03 00:46] LABS: Troponin I < 0.012 ng/mL (0.000-0.034)
--- NOTE | 2025-07-03 01:00 | PC.NURSE ---
Pt ambulates steadily per self to BR to urinate and back to bed, pt reports feeling better.
[2025-07-03 01:50] VITALS: BP 140/79; PULSE 75; RESP 18; TEMP 36.6; O2SAT 99
== END 2025-07-03 01:50 | disposition home or self-care (01) ==
PROVIDERS: Emergency Provider Emergency Medicine; PCP Family Medicine
DX: I95.1 Orthostatic hypotension (principal); S99.911A Unspecified injury of right ankle, initial encounter; E86.0 Dehydration; I10 Essential (primary) hypertension; E78.5 Hyperlipidemia, unspecified; W18.30XA Fall on same level, unspecified, initial encounter
CPT/HCPCS: 29515; 36415; 73610; 80053; 80307; 81003; 82077; 82948; 83605; 84484; 85025; 93005; 96360; 96361; 99284; J7030; L4350